=== PATIENT | male | born 1955 | race Caucasian/White ===

== ENCOUNTER 2018-04-18 19:11 | Emergency (ER) | payer BC ==
[~2018-04-18] VITALS: Ht 170.2 cm; Wt 81.6 kg
[~2018-04-18 19:11] MED LIST: CPR500T PO; HYDR-2890 PO; HYDR-3583 PO; IBP800T PO; METR500T PO
--- NOTE | 2018-04-18 19:43 | ED Abdominal Pain ---
General Stated Complaint: ABD PAIN Source of Information: Patient Exam Limitations: No Limitations History of Present Illness Date Seen by Provider: Apr 18, 2018 Time Seen by Provider: 19:41 Initial Comments To ER with diffuse abdominal pain since Sunday04/12/18. No nausea or vomiting. No diarrhea or constipation. No alleviating or exacerbating factors. Never had this before. Timing/Duration: 1 Week Severity/Quality: Moderate Location: Generalized Abdomen Radiation: No Radiation Activities at Onset: None Associated Symptoms: No Nausea/Vomiting Allergies and Home Medications Allergies Coded Allergies: No Known Drug Allergies (Unverified , 05/31/11) Home Medications Ciprofloxacin 500 Mg Tablet, 1 TAB PO BID, (Reported) Dicyclomine HCl 10 Mg Capsule, 10 MG PO TID Prescribed by: ARMANDO FLOWERS on 04/18/182127 Hydrocodone Bit/Acetaminophen 1 Each Tablet, 1 EACH PO Q6H PRN, (Reported) Metoprolol Succinate 50 Mg Tab.er.24h, 50 MG PO DAILY Prescribed by: ARMANDO FLOWERS on 04/18/182127 Metronidazole 500 Mg Tab, 1 EACH PO Q8H, (Reported) Patient Home Medication List Home Medication List Reviewed: Yes Review of Systems Review of Systems Constitutional: see HPI; No chills, No fever EENTM: No Symptoms Reported Respiratory: No Symptoms Reported Cardiovascular: No Symptoms Reported Gastrointestinal: See HPI, Abdominal Pain Genitourinary: No Symptoms Reported Musculoskeletal: no symptoms reported Skin: no symptoms reported Psychiatric/Neurological: No Symptoms Reported Endocrine: No Symptoms Reported Past Uzocftr-Sodbqj-Dsceeo Hx Patient Social History Recent Foreign Travel: No Contact w/Someone Who Travel: No Past Medical History Reproductive Disorders: No Physical Exam Vital Signs Vital Signs - First Documented 04/18/18 19:45 Temp 100.0 Pulse 87 Resp 18 B/P (MAP) 191/123 (145) Pulse Ox 99 O2 Delivery Room Air Capillary Refill : Height/Weight/BMI Height: '" Weight: lbs. oz. kg; BMI Method: General Appearance: WD/WN, no apparent distress HEENT: PERRL/EOMI, normal ENT inspection Neck: non-tender, full range of motion Respiratory: no respiratory distress, no accessory muscle use Cardiovascular: regular rate, rhythm, no murmur Gastrointestinal: normal bowel sounds, non tender, soft; No tenderness Extremities: normal range of motion, non-tender Neurologic/Psychiatric: alert, normal mood/affect, oriented x 3 Skin: normal color, warm/dry Progress/Results/Core Measures Results/Orders Lab Results Laboratory Tests Test 04/18/18 19:40 04/18/18 20:22 Range/Units White Blood Count 9.3 4.3-11.0 10^3/uL Red Blood Count 5.18 4.35-5.85 10^6/uL Hemoglobin 16.7 13.3-17.7 G/DL Hematocrit 49 40-54 % Mean Corpuscular Volume 95 80-99 FL Mean Corpuscular Hemoglobin 32 25-34 PG Mean Corpuscular Hemoglobin Concent 34 32-36 G/DL Red Cell Distribution Width 14.1 10.0-14.5 % Platelet Count 287 130-400 10^3/uL Mean Platelet Volume 10.0 7.4-10.4 FL Neutrophils (%) (Auto) 67 42-75 % Lymphocytes (%) (Auto) 21 12-44 % Monocytes (%) (Auto) 10 0-12 % Eosinophils (%) (Auto) 1 0-10 % Basophils (%) (Auto) 0 0-10 % Neutrophils # (Auto) 6.2 1.8-7.8 X 10^3 Lymphocytes # (Auto) 1.9 1.0-4.0 X 10^3 Monocytes # (Auto) 1.0 0.0-1.0 X 10^3 Eosinophils # (Auto) 0.1 0.0-0.3 10^3/uL Basophils # (Auto) 0.0 0.0-0.1 10^3/uL Sodium Level 136 135-145 MMOL/L Potassium Level 3.7 3.6-5.0 MMOL/L Chloride Level 103 98-107 MMOL/L Carbon Dioxide Level 22 21-32 MMOL/L Anion Gap 11 5-14 MMOL/L Blood Urea Nitrogen 11 7-18 MG/DL Creatinine 1.08 0.60-1.30 MG/DL Estimat Glomerular Filtration Rate > 60 BUN/Creatinine Ratio 10 Glucose Level 98 70-105 MG/DL Calcium Level 9.6 8.5-10.1 MG/DL Corrected Calcium 9.3 8.5-10.1 MG/DL Total Bilirubin 0.6 0.1-1.0 MG/DL Aspartate Amino Transf (AST/SGOT) 15 5-34 U/L Alanine Aminotransferase (ALT/SGPT) 23 0-55 U/L Alkaline Phosphatase 76 40-136 U/L Total Protein 7.3 6.4-8.2 GM/DL Albumin 4.4 3.2-4.5 GM/DL Lipase 24 8-78 U/L Urine Color YELLOW Urine Clarity CLEAR Urine pH 6.5 5-9 Urine Specific [place] 1.010 L 1.016-1.022 Urine Protein NEGATIVE NEGATIVE Urine Glucose (UA) NEGATIVE NEGATIVE Urine Ketones NEGATIVE NEGATIVE Urine Nitrite NEGATIVE NEGATIVE Urine Bilirubin NEGATIVE NEGATIVE Urine Urobilinogen NORMAL NORMAL MG/DL Urine Leukocyte Esterase NEGATIVE NEGATIVE Urine RBC (Auto) 4+ H NEGATIVE Urine RBC 10-25 H /HPF Urine WBC NONE /HPF Urine Crystals NONE /LPF Urine Bacteria NONE /HPF Urine Casts NONE /LPF Urine Mucus NEGATIVE /LPF Urine Culture Indicated NO My Orders Orders - ARMANDO FLOWERS APRN Cbc With Automated Diff (04/18/18 19:38) Comprehensive Metabolic Panel (04/18/18 19:38) Lipase (04/18/18 19:38) Iv Heplock-Insert (Order) (04/18/18 19:38) Ct Abdomen/Pelvis W (04/18/18 19:38) Metoprolol Tartrate Injection (Lopressor (04/18/18 20:00) Iohexol Injection (Omnipaque 350 Mg/Ml 1 (04/18/18 21:15) Ketorolac Injection (Toradol Injection) (04/18/18 21:45) Dicyclomine Capsule (Bentyl Capsule) (04/18/18 22:00) Medications Given in ED Current Medications Medications Dose Ordered Sig/Megan Route Start Time Stop Time Status Last Admin Dose Admin Iohexol 100 ml ONCE ONCE IV 04/18/18 21:15 04/18/18 21:16 DC 04/18/18 21:05 100 ML Ketorolac Tromethamine 15 mg ONCE ONCE IVP 04/18/18 21:45 04/18/18 21:46 DC 04/18/18 21:52 15 MG Metoprolol Tartrate 5 mg ONCE ONCE IV 04/18/18 20:00 04/18/18 20:01 DC 04/18/18 20:15 5 MG Vital Signs/I&O 04/18/18 04/18/18 19:45 20:15 Temp 100.0 Pulse 87 71 Resp 18 18 B/P (MAP) 191/123 (145) 154/99 (117) Pulse Ox 99 99 O2 Delivery Room Air Room Air Departure Communication (Admissions) NAME: ROGER BARRIGA [facility] REC#: [id number] PT STATUS: REG ER : 1955 PHYSICIAN: ARMANDO FLOWERS APRN ADMIT DATE: 04/18/18/ER Draft Date of Exam:04/18/18 CT ABDOMEN/PELVIS W PROCEDURE: CT abdomen and pelvis with contrast. TECHNIQUE: Multiple contiguous axial images were obtained through the abdomen and pelvis after administration of intravenous contrast. INDICATION: Abdominal pain. COMPARISON: None FINDINGS: Lung bases are clear. Simple cysts in the liver. The gallbladder, pancreas, spleen, adrenals, kidneys, collecting systems and bladder are negative. Enlarged prostate. Bilateral fat-containing hernias. Normal appendix. No free intraperitoneal air or fluid. No lymphadenopathy. No evidence of bowel obstruction. Moderate spondylotic changes in the visualized spine. No acute osseous findings. IMPRESSION: No acute CT findings in the abdomen or pelvis. Dictated on workstation # [id number] Dict: 04/18/182117 Trans: 04/18/182121 [facility] [id number] Interpreted by: CON LUZ MD Electronically signed by: Impression Primary Impression: Nonspecific abdominal pain Disposition: 01 HOME, SELF-CARE Condition: Stable Departure-Patient Inst. Decision time for Depature: 21:27 Referrals: LOTTIE SAMUEL MD (PCP/Family) Primary Care Physician Patient Instructions: Acute Abdomen (Belly Pain), Adult (DC) Add. Discharge Instructions: 1. Follow-up with your doctor within 1 week for recheck. Return to ER for any fevers or worsening pain or other concerns. Start blood pressure medication as directed. Scripts Metoprolol Succinate (Metoprolol Succinate) 50 Mg Tab.er.24h 50 MG PO DAILY, #14 TAB Prov: ARMANDO FLOWERS APRN 04/18/18 Dicyclomine HCl (Dicyclomine HCl) 10 Mg Capsule 10 MG PO TID, #15 CAP Prov: ARMANDO FLOWERS APRN 04/18/18 ARMANDO FLOWERS APRN Apr 18, 2018 19:43
[2018-04-18 19:52] LABS: BASOPHILS % (AUTO) 0 % (0-10); EOSINOPHILS # (AUTO) 0.1 10^3/uL (0.0-0.3); EOSINOPHILS % (AUTO) 1 % (0-10); HEMATOCRIT 49 % (40-54); HEMOGLOBIN 16.7 G/DL (13.3-17.7); LYMPHOCYTES # (AUTO) 1.9 X 10^3 (1.0-4.0); LYMPHOCYTES % (AUTO) 21 % (12-44); MEAN CORPUSCULAR HEMOGLOBIN 32 PG (25-34); MEAN CORPUSCULAR HGB CONC 34 G/DL (32-36); MEAN CORPUSCULAR VOLUME 95 FL (80-99); MONOCYTES % (AUTO) 10 % (0-12); NEUTROPHILS # (AUTO) 6.2 X 10^3 (1.8-7.8); NEUTROPHILS % (AUTO) 67 % (42-75); PLATELET COUNT 287 10^3/uL (130-400); RED BLOOD COUNT 5.18 10^6/uL (4.35-5.85); RED CELL DISTRIBUTION WIDTH 14.1 % (10.0-14.5); WHITE BLOOD COUNT 9.3 10^3/uL (4.3-11.0)
[2018-04-18] MEDS ORDERED: meTOprolol 5 MG/5 ML (LOPRESSOR) VIAL IV ONE (20:00)
[2018-04-18 20:08] LABS: ALANINE AMINOTRANSFERASE 23 U/L (0-55); ALBUMIN 4.4 GM/DL (3.2-4.5); ALKALINE PHOSPHATASE 76 U/L (40-136); BILIRUBIN,TOTAL 0.6 MG/DL (0.1-1.0); BUN/CREATININE RATIO 10; CALCIUM 9.6 MG/DL (8.5-10.1); CARBON DIOXIDE 22 MMOL/L (21-32); CHLORIDE 103 MMOL/L (98-107); CREATININE SERUM 1.08 MG/DL (0.60-1.30); GFR ESTIMATED > 60; GLUCOSE 98 MG/DL (70-105); LIPASE 24 U/L (8-78); POTASSIUM 3.7 MMOL/L (3.6-5.0); SODIUM 136 MMOL/L (135-145); TOTAL PROTEIN 7.3 GM/DL (6.4-8.2)
[2018-04-18 20:15] VITALS: BP 154/99
[2018-04-18 20:29] LABS: BILIRUBIN,URINE NEGATIVE (NEGATIVE); CLARITY,URINE CLEAR; COLOR,URINE YELLOW; GLUCOSE, URINE (UA) NEGATIVE (NEGATIVE); KETONES,URINE NEGATIVE (NEGATIVE); LEUKOCYTE ESTERASE ,URINE NEGATIVE (NEGATIVE); NITRITE,URINE NEGATIVE (NEGATIVE); PH,URINE 6.5 (5-9); PROTEIN,URINE NEGATIVE (NEGATIVE); UROBILINOGEN,URINE NORMAL (NORMAL)
[2018-04-18] MEDS ORDERED: IOHEXOL 350 MG/ML 100 ML (OMNIPAQUE 350) VIAL IV ONE (21:15)
--- NOTE | 2018-04-18 21:22 | Diagnostic Imaging Report ---
PROCEDURE: CT abdomen and pelvis with contrast. TECHNIQUE: Multiple contiguous axial images were obtained through the abdomen and pelvis after administration of intravenous contrast. INDICATION: Abdominal pain. COMPARISON: None FINDINGS: Lung bases are clear. Simple cysts in the liver. The gallbladder, pancreas, spleen, adrenals, kidneys, collecting systems and bladder are negative. Enlarged prostate. Bilateral fat-containing hernias. Normal appendix. No free intraperitoneal air or fluid. No lymphadenopathy. No evidence of bowel obstruction. Moderate spondylotic changes in the visualized spine. No acute osseous findings. IMPRESSION: No acute CT findings in the abdomen or pelvis. Dictated by: Dictated on workstation # [id number]
[2018-04-18] MEDS ORDERED: METO-370 PO (21:28)
[2018-04-18] MEDS ORDERED: DICY10CA12 PO (21:28)
[2018-04-18] MEDS ORDERED: KETOROLAC 30 MG/ML VIAL IVP ONE (21:45)
[2018-04-18 21:50] VITALS: BP 156/103
[2018-04-18] MEDS ORDERED: DICYCLOMINE 10 MG (BENTYL) CAP PO SCH (22:00)
== END 2018-04-18 21:50 | disposition home or self-care (01) ==
LOC: EDUNIT# 19:11 → ER 19:12
DX: R10.84 Generalized abdominal pain (principal)
CPT/HCPCS: 36415; 74177; 80053; 81000; 83690; 85025; 96374; 96375